=== PATIENT | female | born 2000 | race Caucasian/White ===

== ENCOUNTER 2022-05-19 10:48 | Emergency (ER) | payer OTHER ==
[~2022-05-19] VITALS: Ht 160 cm; Wt 68.2 kg
[2022-05-19 16:24] VITALS: BP 126/71
[2022-05-19] MEDS ORDERED: NS 1,000 ML IV ONE (17:00)
[2022-05-19] MEDS ORDERED: KETOROLAC 30 MG/ML 1ML VIAL IV ONE (17:00)
[2022-05-19] MEDS ORDERED: BACLOFEN 10 MG TAB PO ONE (17:00)
[2022-05-19 17:55] LABS: BASO # 0.1 10^3/uL (0.0-0.2); BASO % 1.1 % (0.0-1.0); EOS # 0.2 10^3/uL (0.0-0.5); EOS % 2.8 % (0.0-3.0); HEMATOCRIT 41.2 % (36.0-47.0); HEMOGLOBIN 13.6 g/dl (12.0-15.5); LYMPH # 2.5 10^3/uL (1.5-5.0); LYMPH % 31.5 % (24.0-44.0); MEAN CORPUSCULAR HEMOGLOBIN 30.6 pg (27.0-33.0); MEAN CORPUSCULAR VOLUME 92.8 fl (80.0-96.0); MONO # 0.4 10^3/uL (0.0-0.8); MONO % 4.9 % (2.0-8.0); NEUTROPHILS # 4.7 10^3/uL (1.5-8.5); NEUTROPHILS % 59.4 % (36.0-66.0); PLATELET COUNT, AUTOMATED 289 10^3/uL (150-450); RED BLOOD COUNT 4.44 10^6/uL (4.00-5.40); WHITE BLOOD COUNT 7.9 10^3/uL (4.0-10.0)
[2022-05-19 18:05] LABS: ERYTHROCYTE SEDIMENTATION RATE 9 mm/hr (0-20)
[2022-05-19 18:23] LABS: C REACTIVE PROTEIN QUANTITATIV < 0.40 MG/DL (<1.0); MAGNESIUM LEVEL 1.8 MG/DL (1.8-2.4)
[2022-05-19 18:27] LABS: FREE T4 1.04 NG/DL (0.89-1.76); THYROID STIMULATING HORMONE 0.746 uIU/ML (0.55-4.78)
[2022-05-19 18:28] LABS: RSV AMPLIFICATION NEGATIVE (NEGATIVE)
[2022-05-19] MEDS ORDERED: diazePAM 5MG TABLET PO ONE (19:25)
[2022-05-19] MEDS ORDERED: NORCO, ANEXSIA 5/325MG TABLET (HYDROcodone/ACETAMINOPHEN) PO ONE (19:30)
[2022-05-19] MEDS ORDERED: METH-1165 PO (19:45)
[2022-05-19] MEDS ORDERED: KETO10TAB PO (19:45)
== END 2022-05-19 20:01 | disposition home or self-care (01) ==
LOC: M ED 10:48
DX: M62.838 Other muscle spasm (principal); F41.9 Anxiety disorder, unspecified; F32.9 Major depressive disorder, single episode, unspecified; G40.89 Other seizures
CPT/HCPCS: 36415; 70450; 72125; 80047; 83605; 83735; 84439; 84443; 84702; 85025; 85652; 86140; 87631; 96361; 96374; 99284; J1885

== ENCOUNTER → 2022-05-28 | Outpatient (CLI) | payer OTHER ==
[~2022-05-28] MED LIST: KETO10TAB PO; METH-1165 PO
== END ==
LOC: M RAD 11:38
PROVIDERS: ATTEND Family Medicine
DX: R10.2 Pelvic and perineal pain (principal)

== ENCOUNTER → 2022-09-08 | Outpatient (REF) | payer OTHER | LOC: M LAB REF 22:01 | PROVIDERS: ATTEND Physician Assistant Medical | DX: J02.9 Acute pharyngitis, unspecified (principal) ==